=== PATIENT | female | born 1945 | race Caucasian/White ===

== ENCOUNTER → 2017-03-18 16:38 | Outpatient (CLI) | payer MEDICARE, BC ==
[2015-07-14 13:08] VITALS: BMI 29.1
[~2017-03-18 16:38] MED LIST: CENTRUM COMPLE1 EACH PO; CHONDROITIN SULFATE PO; COD LIVER OIL; CYMBALTA60 MG PO; DEXILANT60 MG PO; FISH OIL 1,2001 CAP PO; GLUCOSAMINE & C1 CAP PO; GLUCOSAMINE HC500 MG PO; LUTEIN20 MG PO; RITALIN20 MG PO; SYNTHROID75 MCG PO; VITAMIN D3 PO; VITAMIN D3400 UNI1 PO; VITAMIN E100 UNIT PO
== END | disposition home or self-care (01) ==
LOC: D.MAMMO 08:00
DX: Z12.31 Encounter for screening mammogram for malignant neoplasm of breast (principal)

== ENCOUNTER → 2018-08-22 19:20 | Outpatient (CLI) | payer MEDICARE, BC ==
[2015-07-14 13:08] VITALS: BMI 29.1
== END | disposition home or self-care (01) ==
LOC: D.MAMMO 09:30
DX: Z12.31 Encounter for screening mammogram for malignant neoplasm of breast (principal)

== ENCOUNTER 2018-10-03 10:35 | Outpatient (CLI) | payer MEDICARE, BC ==
[2015-07-14 13:08] VITALS: BMI 29.1
== END 2018-10-03 13:15 | disposition home or self-care (01) ==
LOC: D.OPS 10:35
PROVIDERS: ATTEND Internal Medicine Gastroenterology
DX: R13.10 Dysphagia, unspecified (principal); K22.70 Barrett's esophagus without dysplasia; R07.9 Chest pain, unspecified

== ENCOUNTER 2018-11-06 06:00 | Inpatient (IN) | payer MEDICARE, BC ==
[2018-11-03 09:37] LABS: HEMATOCRIT 39.8 % (36.0-48.0); HEMOGLOBIN 13.3 g/dL (12-16); MCH 27.8 pg (26.0-34.0); MCHC 33.4 g/dL (31.0-37.0); MCV 83.1 fL (80.0-100.0); MEAN PLATELET VOLUME 9.2 fL (7.4-10.4); RBC 4.79 10x6/uL (4.00-5.40); RDW 13.8 % (11.5-14.5); WBC 4.9 10x3/uL (4.8-10.8)
[~2018-11-06] VITALS: Ht 167.6 cm; Wt 84.5 kg
[2018-11-06] VITALS (12 sets, daily range): BP systolic 102–137; BP diastolic 52–74; Ht 167.6 cm; Wt 84.5 kg
[~2018-11-06 06:00] MED LIST changes: +CALCIUM 600 +1 EAC3 PO; +CARAFATE1 G PO; +CENTRUM SILVER1 EAC3 PO; +LEXAPRO10 MG PO; +OMEPRAZOLE40 MG PO; +ROBAXIN500 MG PO; +ULTRAM50 MG PO; +VITAMIN B-12500 MCG PO; +ZYRTEC10 MG PO
--- NOTE | 2018-11-06 11:25 | NUR ---
RECEIVED TO ROOM 2209 VIA BED FROM PACU. AT BEDSIDE. ALERT AND ORIENTEDX3. DENIES NEEDS. 4 SMALL INSERTION SITES NOTED TO ABDOMEN WHICH ARE CLEAN AND DRY. DENIES NEEDS. VSS.
--- NOTE | 2018-11-06 13:00 | NUR ---
LUNCH SERVED IN ROOM. ATE ONLY A FEW BITES. STATED IT WAS TO SALTY. DENIES NEEDS. VSS.
--- NOTE | 2018-11-06 16:15 | NUR ---
C/O CHEST PAIN. VSS. BP STEADY. HEART RATE IS UP SLIGHTLY. UP OUT OF BED WITH MIN ASSIST OF TWO. AMBULATED IN HALLWAY 50 FEET IWTH MIN ASSIST. REPORTS CHEST PAIN GONE AFTER AMBULATION. SITTING UP IN CHIAR AT BEDSIDE. DENIES NEEDS. ENCOURAGED TO TRY SOME JELLO AND WATER.
--- NOTE | 2018-11-06 18:51 | NUR ---
ATE ABOUT 25% OF SUPPER. C/O HEADACHE. GIVEN 650 MG TYLENOL LIQUID PO WILL MONITOR. AMBULATED IN HALLWAY 100 FEET WITH ONE PERSON MIN ASSIST.
--- NOTE | 2018-11-06 20:00 | NUR ---
ALERT RESTING IN BED, DENIES PAIN, SEE SHIFT ASSESSMENT CALL LIGHT IN RECH
[2018-11-07 00:26] VITALS: BP 124/64
[2018-11-07 04:38] VITALS: BP 117/60
[2018-11-07 06:09] LABS: BASOPHILS 0 % (0-2); EOSINOPHILS 0 % (0-7); HEMATOCRIT 35.6 % (36.0-48.0); HEMOGLOBIN 11.7 g/dL (12-16); IMMATURE GRANULOCYTES 0.2 % (0-5); LYMPHOCYTES 12.9 % (15-50); MCH 27.1 pg (26.0-34.0); MCHC 32.9 g/dL (31.0-37.0); MCV 82.6 fL (80.0-100.0); MEAN PLATELET VOLUME 9.5 fL (7.4-10.4); MONOCYTES 6.1 % (2-11); NEUTROPHILS 80.8 % (40-80); PLATELET COUNT 239 10x3/uL (130-400); RBC 4.31 10x6/uL (4.00-5.40); RDW 13.8 % (11.5-14.5); WBC 11.5 10x3/uL (4.8-10.8)
[2018-11-07 07:48] LABS: ALBUMIN 3.1 g/dL (3.4-5.0); ALKALINE PHOSPHATASE 46 U/L (46-116); ALT (SGPT) 92 U/L (10-68); BILIRUBIN - TOTAL 0.32 mg/dL (0.2-1.3); CALC OSMOLALITY 278 mosm/kg (275-300); CALCIUM 8.6 mg/dL (8.5-10.1); CHLORIDE - SERUM 102 mmol/L (98-107); CREATININE - SERUM 0.7 mg/dL (0.6-1.3); GLUCOSE 117 mg/dL (74-106); POTASSIUM - SERUM 3.8 mmol/L (3.5-5.1); PROTEIN - SERUM 6.5 g/dL (6.4-8.2); SODIUM 139 mmol/L (136-145); UREA NITROGEN 12 mg/dL (7-18); eGFR NON AFRICAN AMERICAN 87 mL/min (90-120)
--- NOTE | 2018-11-07 07:50 | NUR ---
PT SITTING UP IN CHAIR AT BEDSIDE. RESP EVEN AND UNLABORED. REPORTS HEADACHE THIS AM, REPORTING PAIN 10/10 AT THIS TIME. TRAMADOL ADMINISTERED PER MD ORDERS. IV TO RIGHT HAND WITH LR @ 75ML/HR INFUSING VIA PUMP. SITE WITHOUT REDNESS OR EDEMA. DENIES FURTHER NEEDS AT THIS TIME. CL WITHIN REACH. ENCOURAGED TO CALL WITH NEEDS. CONTINUE POC
[2018-11-07 08:29] VITALS: BP 107/44
[2018-11-07] MEDS ORDERED: HYDROCODON-ACE1 EAC7 PO (10:12)
--- NOTE | 2018-11-07 11:40 | NUR ---
PT DISCHARGE INSTRUCTIONS PROVIDED. DISCUSSED FOLLOW UP APPOINTMENT WITH DR OTOOLE. CONTINUATION OF HOME MEDICATIONS. IV D/C'D FROM RIGHT HAND, CATH INTACT. PT AWAITING RIDE HOME. DENIES FURTHER QUESTIONS AT THIS TIME.
== END 2018-11-07 13:39 | disposition home or self-care (01) | DRG 328 ==
LOC: D.OPS 06:00 → D.PAN 08:00 → D.OPS 08:00 → D.PAN 08:15 → D.MS 10:56 → D.OPS 10:57 → D.MS 10:58
PROVIDERS: Anesthesiology; ADMIT Surgery; ATTEND Surgery
PROC: 0BUT4JZ Supplement Diaphragm with Synthetic Substitute, Percutaneous Endoscopic Approach (ICD-10-PCS; principal; 2018-11-06 08:15)
PROC: 0DV44CZ Restriction of Esophagogastric Junction with Extraluminal Device, Percutaneous Endoscopic Approach (ICD-10-PCS; 2018-11-06 08:15)
DX: K21.0 Gastro-esophageal reflux disease with esophagitis (principal); K44.9 Diaphragmatic hernia without obstruction or gangrene

== ENCOUNTER → 2019-12-12 16:30 | Outpatient (CLI) | payer MEDICARE, BC ==
[~2019-12-12 16:30] MED LIST changes: +HYDROCODON-ACE1 EAC7 PO
== END | disposition home or self-care (01) ==
LOC: D.LABREF 16:30
PROVIDERS: ATTEND Orthopaedic Surgery
DX: M17.12 Unilateral primary osteoarthritis, left knee (principal)

== ENCOUNTER 2019-12-14 15:56 | Inpatient (IN) | payer MEDICARE, BC ==
[~2019-12-14] VITALS: Ht 167.6 cm; Wt 78.5 kg
[2019-12-25] MEDS ORDERED: CALCIUM PO (13:28)
[2019-12-25] MEDS ORDERED: VITAMIN D5000 UNI1 PO (13:29)
[2019-12-25] MEDS ORDERED: TRINTELLIX20 MG PO (13:30)
[2019-12-25] MEDS ORDERED: [UNRECOGNIZED DRUG - OTHER] PO (13:37)
[2019-12-25] MEDS ORDERED: VITAMIN B-1100 M1 PO (13:38)
[2019-12-26 12:08] LABS: ANION GAP 7.2 mmol/L (8-16); CALCIUM 9.4 mg/dL (8.5-10.1); CARBON DIOXIDE 31.7 mmol/L (21.0-32.0); CREATININE - SERUM 0.8 mg/dL (0.6-1.3); POTASSIUM - SERUM 3.9 mmol/L (3.5-5.1)
[2019-12-26 12:10] LABS: BASOPHILS 0.2 % (0-2); EOSINOPHILS 2.8 % (0-7); HEMATOCRIT 43.2 % (36.0-48.0); HEMOGLOBIN 13.7 g/dL (12-16); LYMPHOCYTES 41.2 % (15-50); MCH 27.5 pg (26.0-34.0); MCHC 31.7 g/dL (31.0-37.0); MCV 86.7 fL (80.0-100.0); MEAN PLATELET VOLUME 9.2 fL (7.4-10.4); MONOCYTES 8.8 % (2-11); PLATELET COUNT 244 10x3/uL (130-400); RBC 4.98 10x6/uL (4.00-5.40); RDW 13.4 % (11.5-14.5); WBC 5.7 10x3/uL (4.8-10.8)
[2019-12-26 12:14] LABS: APTT 23.9 SECONDS (22.8-39.4); INR 0.91 (0.85-1.17); PROTIME 12.2 SECONDS (11.6-15.0)
[2019-12-26 13:31] LABS: BILIRUBIN NEGATIVE (NEGATIVE); GLUCOSE NEGATIVE (NEGATIVE); KETONE NEGATIVE (NEGATIVE); NITRITE NEGATIVE (NEGATIVE); SPECIFIC GRAVITY 1.015 (1.005-1.020); UROBILINOGEN NORMAL (NORMAL)
[2020-01-01] VITALS (13 sets, daily range): BP systolic 98–125; BP diastolic 39–62; BMI 27.5; BMI 27.9
--- NOTE | 2020-01-01 12:47 | NUR ---
THROUGH TRAFFIC KEPT TO A MINIMUM. HIBACLENS AND ALCOHOL USED TO WASH LEG BEFORE PREPPING. STERILE GOWNED AND GLOVED TO CHLORAPREP ENTIRE LEG.
--- NOTE | 2020-01-01 14:15 | NUR ---
XRAY COMPLETED AND ICE APPLIED ORDERED. PT AWAKE AND RESTING QUIETLY IN PACU. VSS. WILL CALL REPORT TO FLOOR NURSE AND CPOC.
--- NOTE | 2020-01-01 14:45 | NUR ---
RECEIVED FROM SURGERY. LEFT TOTAL KNEE DONE. DRESSING TO KNEE CDI. NO COMPLAINTS OF PAIN OR DISCOMFORT. VITAL SIGNS STABLE. DENIES HAVING ANY NEEDS AT THIS TIME. CONTINUE PLAN OF CARE.
--- NOTE | 2020-01-01 18:58 | NUR ---
PATIENT C/O PAIN. ADMINISTERED PAIN MEDS PER ORDERS.
--- NOTE | 2020-01-01 19:25 | NUR ---
PLACED PATIENT ON CPM TO LEFT KNEE. PATIENT DENIES OTHER NEEDS AT THIS TIME. VSS. COMPLETED ASSESSMENT. PATIENT DENIES OTHER NEEDS AT THIS TIME. BED IN LOWEST POSITION AND CALL LIGHT WITHIN REACH. ENCOURAGED THE PATIENT TO CALL IF SHE HAS NEEDS. WILL CONTINUE TO MONITOR.
[2020-01-02] VITALS: BP 101/49
--- NOTE | 2020-01-02 02:02 | NUR ---
PT CUSTOMER ACCOUNT MANAGER LIGHT, PT PLACED ON BEDPAN, VOIDED BY SELF WITH NO DIFFICULTY, PT REMOVED FROM BEDPAN, ANA MARIA CARE DONE WITH WET WIPES, PT C/O LEFT LEG PAIN, ADM PAIN MED PER MD ORDERS, SEE EMAR, WITH FRESH H20, PT DENIES FURTHER NEEDS, SCD AND PLEXI PULSE ON AND WORKING PROPERLY, BED IN LOW POSITION, SIDE RAILS X 2, CALL LIGHT IN REACH
[2020-01-02 04:10] VITALS: BP 95/47
--- NOTE | 2020-01-02 04:10 | NUR ---
PT CLINICAL EVALUATOR LIGHT, VS OBTAINED, PT PLACED ON BEDPAN, VOIDED BY SELF WITH NO DIFFICULTY, PT REMOVED FROM BEDPAN, ANA MARIA CARE DONE WITH WET WIPES, PT REQUESTED AND SERVED FRESH H20, DENIES FURTHER NEEDS
--- NOTE | 2020-01-02 05:56 | NUR ---
PT RESTING WITH EYES CLOSED, AROUSES TO SOFT VERBAL STIMULATION, PT PLACED ON BEDPAN, VOIDED WITH NO DIFFICULTY, REMOVED FROM BEDPAN, ANA MARIA CARE DONE WITH WET WARM WIPE, ADM PAIN MED AND SYNTHROID PER MD ORDERS, SEE EMAR, PT PLACED ON CPM MACHINE, PT DENIES FURTHER NEEDS
[2020-01-02 07:04] LABS: HEMATOCRIT 34.4 % (36.0-48.0); MCH 27.4 pg (26.0-34.0); MCV 85.6 fL (80.0-100.0); MEAN PLATELET VOLUME 9.5 fL (7.4-10.4); RBC 4.02 10x6/uL (4.00-5.40); RDW 13.3 % (11.5-14.5)
[2020-01-02 11:14] VITALS: Ht 167.6 cm; Wt 78.5 kg
[2020-01-02 11:54] VITALS: BP 103/50
[2020-01-02 13:35] VITALS: BP 95/47
--- NOTE | 2020-01-02 14:47 | NUR ---
PT C/O 12/25 LFT KNEE PAIN, STATES LEG TINGLES, PT SUPRISED TO KNOW NO PAIN MEDS SINCE 050
[2020-01-02 15:43] LABS: CALCIUM 8.3 mg/dL (8.5-10.1); CARBON DIOXIDE 31.2 mmol/L (21.0-32.0); CREATININE - SERUM 0.9 mg/dL (0.6-1.3); MAGNESIUM - SERUM 2.1 mg/dL (1.8-2.4); POTASSIUM - SERUM 4.2 mmol/L (3.5-5.1)
[2020-01-02 16:41] LABS: BASOPHILS 0.1 % (0-2); EOSINOPHILS 0.5 % (0-7); HEMOGLOBIN 10.9 g/dL (12-16); IMMATURE GRANULOCYTES 0.1 % (0-5); LYMPHOCYTES 25.1 % (15-50); MCH 27.3 pg (26.0-34.0); MCHC 32.1 g/dL (31.0-37.0); MCV 85.2 fL (80.0-100.0); MEAN PLATELET VOLUME 9.2 fL (7.4-10.4); MONOCYTES 9.3 % (2-11); NEUTROPHILS 64.9 % (40-80); PLATELET COUNT 181 10x3/uL (130-400); RBC 3.99 10x6/uL (4.00-5.40); RDW 13.3 % (11.5-14.5); WBC 9.7 10x3/uL (4.8-10.8)
--- NOTE | 2020-01-02 17:29 | OP ---
PATIENT NAME: MEKA CHAVEZ MEDICAL RECORD: [id number] :49 LOCATION:D. D.1205 ADMISSION DATE:01/01/20 SURGEON: REJI ARELLANO DO DATE OF OPERATION: 01/01/2020 PROCEDURE PERFORMED: Left total knee arthroplasty. PREOPERATIVE DIAGNOSIS: Left knee osteoarthritis with severe valgus deformity. POSTOPERATIVE DIAGNOSIS: Left knee osteoarthritis with severe valgus deformity. INDICATIONS: Ms. Chavez is a 74-year-old female who has had all manner of nonoperative treatment for this left knee is painful. She has tried bracing as well to no avail. She want something done surgically and wanted a total knee done as this is affecting her activities of daily living. I informed her of the risks including infection, bleeding, damage to nerves and vessels, need for further surgery, continued pain, arthrofibrosis, blood clots, , failure of implants and she signed the consent. SURGEON: Reji Arellano DO SYSTEMS PROTECTION TECHNICIAN: I was assisted by Wilfred Flynn, certified surgical middle school assistant principal. DESCRIPTION OF PROCEDURE: The patient was taken to the operative suite, laid in supine position, given general anesthetic and LMA placed. She was given 2 grams Ancef, 80 mg of gentamicin, a gram of TXA. After the LMA was placed, the left lower extremity was prepped and draped in sterile fashion. A timeout was performed and everyone was in agreement with correct side, site, patient and procedure and then began to carmelo out the incision and covered in Ioban. I used a 10-blade scalpel to go through the skin down to the capsule. A fresh 10 blade was then used to make a medial parapatellar approach through the knee and once that was completed, any bleeding was coagulated with Aquamantys. Part of the fat pad was removed. The patella was everted and milled down to accommodate a prosthesis. The knee was then flexed up and the femoral canal was entered. The distal femur was then cut through the intramedullary guide after pinning it into place. Then, the proximal tibia was cut as well using extramedullary guide. The excess tibia was then removed as well as the menisci and a 10 extension block and block fit well. We then flexed the knee up and sized the femur to be 62.5. A 4-in-1 cutting block was then impacted on and pinned into place. The alex wing was used to ensure there was no notching. We then cut through the 4-in-1 cutting block where the femur was. The excess bone was removed and then the trial was impacted on. I then floated in the tibial tray with the poly and marked the rotation. After ranging the knee 3 times, it did fit very well and good medial and lateral stability. The head was then marked and then the patella was drilled as well as the lug holes in the femur. The trial was then removed. The tibia was then exposed and sized to be 67. This was then reamed and punched and the extra holes put in the tibia. Cement was then mixed and the tibia was irrigated as well as the femur. Cement was then put in the bone and all the implant impacted and placed on the tibia. Excess cement was removed. I then impacted the femur on and put a 10 poly in between them, brought the knee into extension and exposed the patella. The patella was then cleaned out and cement was put in the patellar holes and this was squeezed and held into place while the cement dried. Excess cement was removed from it. We then put in the 10% povidone iodine with 500 mL normal saline wash and let it sit for 3 minutes, irrigated that out with a liter of normal saline. Then, the cement was then OPERATIVE REPORT [id number] MEKA CHAVEZ dried and then sized the poly to a 12, 12 fit very well, put in the anterior stabilizer 12 poly and locked into place and had good range of motion of the knee and good stability medially and laterally in flexion and extension. I then irrigated one more time, put in Rosibel powder and vancomycin powder. Wilfred Flynn, certified energy manager, closed the capsule with #1 pops Vicryl in [id number]-no-axzjs fashion. He then closed the skin with 2-0 Vicryl in inverted interrupted fashion and a ZipLine placed on the knee. She was then dressed with Adaptic, 4 x 4s, ABD, Webril, Ryan wrap and then taken to recovery in stable condition. Blood loss approximately 250 mL. COMPLICATIONS: None. TRANSINT:[id number] Voice Confirmation ID: [id number] DOCUMENT ID: [id number] REJI ARELLANO DO at 7089 CC: [id number] DICTATION DATE: 01/01/20 1334 MIXER OPERATOR HOT METAL: 01/02/20 0024 ADM IN [facility] [address] [id number]
--- NOTE | 2020-01-02 19:08 | MORECARE ---
CASE MANAGEMENT DISCHARGE SUMMARY PATIENT: MEKA CHAVEZ UNIT: [id number] ADM DATE: 01/01/20 AGE: 74 : [birth year] SEX: F ROOM/BED: D.1205 AUTHOR: TALHA,DOC PHYSICIAN: REFERRING PHYSICIAN: EMILY ARELLANO DO DATE OF SERVICE: 01/02/20 Discharge Plan Patient Name: MEKA CHAVEZ Facility: [facility]:[place] : 1945 Planned Disposition: Outpatient PT\OT Anticipated Discharge Date: 01/04/20 Discharge Date: Expected LOS: 3 Initial Reviewer: [email or web address] Initial Review Date: 01/01/2020 Generated: 01/02/20 8:07 pm Comments DCP- Discharge Planning Updated by [id number]: Keira Her on 01/02/20 6:[address] CM Met with patient regarding DC plans/needs. Patient lives independently with her , Al. States she has 3 steps going into her home. PCP: Sangeetha Borden APRN. Pharmacy: [facility]. Emergency contact: Waylon Chavez (spouse) [phone]. CM discussed HHS, OP Therapy, Rehab, SNF for therapy. Patient choice signed for [facility] OP Therapy. Patient states she can return to her home, safely. Denies being hospitalized within the past 30 days. Transportation upon DC will be her , Waylon. CM will contact [facility] OP Therapy for initial date/time of initial appointment. CM will follow and graham OLLIE. DCPIA - Discharge Planning Initial Assessment Updated by [id number]: Keira Her on 01/02/20 7:06 pm * Is the patient Alert and Oriented? Yes * How many steps to enter\exit or inside your home? * PCP Sangeetha Borden APRN * Pharmacy [facility]. * Preadmission Environment Home with Family * ADLs Independent * Equipment Rolling Walker Shower Chair * Other Equipment 2 wheeled walker, Polar Ice pack, Tub bench, CPM * List name and contact numbers for known caregivers / representatives who currently or will assist patient after discharge: Waylon Chavez (spouse) [phone] * Verbal permission to speak to the caregivers and representatives has been obtained from the patient. Yes * Community resources currently utilized None * Please name any agencies selected above. [facility] OP Therapy [phone] * Additional services required to return to the preadmission environment? Yes * Can the patient safely return to the preadmission environment? Yes * Has this patient been hospitalized within the prior 30 days at any hospital? No Patient Name: MEKA CHAVEZ Page [id number] at 1908 All edits/amendments must be made on the electronic document DICTATION DATE: 01/02/201906 OYSTER SORTER: ROBER 01/02/201906 RPT#: [id number] DC DATE: STATUS: ADM IN [facility] [address] [place] [address] END OF REPORT
--- NOTE | 2020-01-02 19:31 | NUR ---
PM ROUNDS MADE, CPM MACHINE ON AND WORKING PROPERLY, INFORMED PT THAT I WILL BE BACK SHORTLY, PT VERBALIZES UNDERSTANDING, DENIES NEEDS AT THIS TIME
[2020-01-02 20:15] VITALS: BP 95/47
--- NOTE | 2020-01-02 20:15 | NUR ---
ASSESSMENT PER FLOW SHEET, VS OBTAINED, SALINE LOCK IN LEFT FA INTACT WITH NO REDNESS OR EDEMA, LEFT KNEE DRESSING CDI WITH NO DRAINAGE NOTED, PT ON CPM AT THIS TIME, PT REPORTS NEEDING TO VOID, PT UP TO BR VIA WALKER WITH ASSISTANCE, GAIT STEADY, VOIDED WITH NO DIFFICULTY, PT BACK TO BED, LEFT KNEE BACK IN CPM, KATERINA HOSE AND SCD PLACED ON RIGHT LEG, SCD MACHING WORKING PROPERLY, PT INST ON AND DEMONSTRATED I.S. WITH GOOD EFFORT, RATES INC PAIN 6/10, DENIES NEED FOR PAIN MED AT THIS TIME, PT DENIES NEEDS, BED IN LOW POSITION, SIDE RAILS X 2, CALL LIGHT IN REACH
--- NOTE | 2020-01-02 21:36 | NUR ---
PT CEMENT PAVER LIGHT, PT REQUEST CPM OFF AT THIS TIME, ADM 2100 MEDS AND PAIN MED PER MD ORDERS, SEE EMAR, PLEXI BOOT PLACED ON LEFT FOOT AND WORKING PROPERLY, PT DENIES FURTHER NEEDS, BED IN LOW POSITION, SIDE RAILS X 2, CALL LIGHT IN REACH, TRASH REMOVED
--- NOTE | 2020-01-02 22:30 | NUR ---
PT RESTING WITH EYES CLOSED, RESP QUIET, NO DISTRESS NOTED, LEFT UNDISTURBED AT THIS TIME
--- NOTE | 2020-01-03 00:38 | NUR ---
PT RESTING WITH EYES CLOSED, RESP QUIET, NO DISTRESS NOTED, LEFT UNDISTURBED AT THIS TIME
--- NOTE | 2020-01-03 02:10 | NUR ---
PT RESTING WITH EYES CLOSED, AROUSES TO SOFT VERBAL STIMULATION, PT DENIES NEED FOR PAIN MED AT THIS TIME, BED IN LOW POSITION, SIDE RAILS X 2, CALL LIGHT IN REACH
[2020-01-03 03:47] VITALS: BP 105/54
--- NOTE | 2020-01-03 03:47 | NUR ---
PT C APPLICATION DEVELOPER LIGHT, PT UP TO BR VIA WALKER WITH ASSISTANCE, VOIDED, REPORTS FEELING A LITTLE NAUSEATED, PT BACK TO BED, PT REQUESTED O2 AT THIS TIME, STATES "WHEN I WAS IN THE AMBULANCE WHEN I BROKE MY WRIST, I TOLD THE EMT THAT I FELT LIKE I WAS GOING TO THROW UP, AND HE TOLD ME TO TAKE IN DEEP BREATHS OF THE OXYGEN AND THAT I WOULD FEEL BETTER, AND IT ACTUALLY WORKED", SCD AND PLEXI PULSE PLACED ONE AND WORKING PROPERLY, ADM PAIN MED PER MD ORDERS, SEE EMAR, INFORMED PT THAT I WILL IN AROUND 5AM TO PLACE CPM ON, PT VERBALIZES UNDERSTANDING, FRESH H20 SERVED, DENIES FURTHER NEEDS
--- NOTE | 2020-01-03 05:30 | NUR ---
PT AROUSES TO SOFT VERBAL STIMULATION, CPM PLACED ON AND WORKING PROPERLY, PT DENIES NEEDS OR PAIN AT THIS TIME
[2020-01-03 06:34] LABS: CALC OSMOLALITY 278 mosm/kg (275-300); CALCIUM 7.7 mg/dL (8.5-10.1); CHLORIDE - SERUM 105 mmol/L (98-107); GLUCOSE 105 mg/dL (74-106); SODIUM 140 mmol/L (136-145); UREA NITROGEN 12 mg/dL (7-18)
[2020-01-03 06:35] LABS: CREATININE - SERUM 0.6 mg/dL (0.6-1.3); POTASSIUM - SERUM 3.4 mmol/L (3.5-5.1); eGFR NON AFRICAN AMERICAN > 90 mL/min (90-120)
--- NOTE | 2020-01-03 06:47 | NUR ---
PT RESTING WITH EYES CLOSED, AROUSES TO SOFT VERBAL STIMULATION, ADM 0600 MEDS PER MD ORDERS, SEE EMAR, PT DENIES NEEDS AT THIS TIME
[2020-01-03] MEDS ORDERED: ELIQUIS2.5 MG PO (07:29)
[2020-01-03] MEDS ORDERED: HYDROCODON-ACE1 EA10 PO (07:30)
[2020-01-03] MEDS ORDERED: KEFLEX500 MG PO (07:30)
[2020-01-03 07:31] LABS: BASOPHILS 0.1 % (0-2); EOSINOPHILS 2.9 % (0-7); HEMATOCRIT 32.5 % (36.0-48.0); HEMOGLOBIN 10.7 g/dL (12-16); IMMATURE GRANULOCYTES 0.1 % (0-5); LYMPHOCYTES 28.8 % (15-50); MCHC 32.9 g/dL (31.0-37.0); MCV 85.1 fL (80.0-100.0); MEAN PLATELET VOLUME 9.9 fL (7.4-10.4); MONOCYTES 10.4 % (2-11); NEUTROPHILS 57.7 % (40-80); PLATELET COUNT 205 10x3/uL (130-400); RBC 3.82 10x6/uL (4.00-5.40); RDW 13.7 % (11.5-14.5); WBC 7.8 10x3/uL (4.8-10.8)
[2020-01-03 07:40] VITALS: BP 116/48
--- NOTE | 2020-01-03 07:40 | NUR ---
PT IS RESTING IN BED WITH EYES OPEN. RESPIRATIONS ARE EVEN AND UNLABORED. PT IS AAOX 4. DRESSING TO LEFT KNEE NOTED AND CDI. CPM IS ON AND WORKING WITHOUT DIFFICULTY. PT DENIES PRESENCE OF NUMBNESS/TINGLING TO LLE. PT WITH O2 VIA NC @ 1.5L. PT REPORTS THAT THE O2 ASSISTS WITH NAUSEA AND DOES NOT WEAR O2 AT HOME. PIV TO LEFT FA NOTED AND IS SL. FLUSHES WITHOUT DIFFICULTY. PT DENIES PRESENCE OF PAIN/VOMITING AT THIS TIME. PT REPORTS NAUSEA AND DENIES NEEDS AND STATES "THE OXYGEN IS HELPING". BED IS IN THE LOWEST POSITION. CALL LIGHT AND BEDSIDE TABLE ARE WITHIN REACH. SIDE RAILS X 2. PT DENIES FURTHER NEEDS. WILL CONT TO MONITOR.
--- NOTE | 2020-01-03 08:15 | NUR ---
CPM REMOVED PER PT REQUEST.
--- NOTE | 2020-01-03 10:16 | MORECARE ---
CASE MANAGEMENT DISCHARGE SUMMARY PATIENT: MEKA CHAVEZ UNIT: [id number] ADM DATE: 01/01/20 AGE: 74 : 47 SEX: F ROOM/BED: D.1205 AUTHOR: TALHA,DOC PHYSICIAN: REFERRING PHYSICIAN: EMILY ARELLANO DO DATE OF SERVICE: 01/03/20 Discharge Plan Patient Name: MEKA CHAVEZ Facility: [facility]:[place] : 1945 Planned Disposition: Outpatient PT\OT Anticipated Discharge Date: 01/04/20 Discharge Date: Expected LOS: 3 Initial Reviewer: [email or web address] Initial Review Date: 01/01/2020 Generated: 01/03/20 11:15 am Comments DCP- Discharge Planning Updated by [id number]: Keira Her on 01/03/20 9:[address] [facility] OP PT appointment 01/02 @2:45 pm. Arrive by 2:30 for paperwork. DCP- Discharge Planning Updated by [email or web address]: Keira Her on 01/02/20 6:[address] CM Met with patient regarding DC plans/needs. Patient lives independently with her , Waylon. States she has 3 steps going into her home. PCP: Sangeetha Borden APRN. Pharmacy: [facility]. Emergency contact: Waylon Chavez (spouse) [phone]. CM discussed HHS, OP Therapy, Rehab, SNF for therapy. Patient choice signed for [facility] OP Therapy. Patient states she can return to her home, safely. Denies being hospitalized within the past 30 days. Transportation upon DC will be her , Waylon. CM will contact [facility] OP Therapy for initial date/time of initial appointment. CM will follow and graham LEVIN. DCPIA - Discharge Planning Initial Assessment Updated by [id number]: Keira Her on 01/02/20 7:06 pm * Is the patient Alert and Oriented? Yes * How many steps to enter\exit or inside your home? * PCP Sangeetha Borden APRN * Pharmacy [facility]. * Preadmission Environment Home with Family * ADLs Independent * Equipment Rolling Walker Shower Chair * Other Equipment 2 wheeled walker, Polar Ice pack, Tub bench, CPM * List name and contact numbers for known caregivers / representatives who currently or will assist patient after discharge: Waylon Chavez (spouse) [phone] * Verbal permission to speak to the caregivers and representatives has been obtained from the patient. Yes * Community resources currently utilized None * Please name any agencies selected above. [facility] OP Therapy [phone] * Additional services required to return to the preadmission environment? Yes * Can the patient safely return to the preadmission environment? Yes * Has this patient been hospitalized within the prior 30 days at any hospital? No Last DP export: 01/02/20 6:08 p Patient Name: MEKA CHAVEZ Page [phone] at 1016 All edits/amendments must be made on the electronic document DICTATION DATE: 01/03/20 1015 VEST MAKER: ROBER 01/03/20 1015 RPT#: [id number] DC DATE: STATUS: ADM IN [facility] [address] [place] [address] END OF REPORT
[2020-01-03 11:25] VITALS: BP 115/41
--- NOTE | 2020-01-03 12:00 | NUR ---
ALL DISCHARGE INSTRUCTIONS COVERED WITH PT AND PT SPOUSE. (4) PRINTED RX GIVEN TO PT. PT DENIES FURTHER QUESTIONS/CONCERNS/NEEDS. PIV TO LEFT FA REMOVED WITH CATHETER TIP INTACT. DRESSING APPLIED. DRESSING CHANGED TO LEFT KNEE PER ORDER. 94) EXTRA DRESSING GIVEN TO PT FOR PT HOME NEEDS. ALL DISCHARGE PAPERS SIGNED. PT TO NOTIFY NURSE WHEN READY FOR TRANSPORT FROM ROOM.
--- NOTE | 2020-01-03 12:15 | NUR ---
PT TRANSPORTED FROM ROOM VIA WHEELCHAIR. PT STATES THAT SHE HAS ALL PERSONAL BELONGINGS. PT DENIES FURTHER QUESTIONS/CONCERNS/NEEDS AT THIS TIME. PT THANKS THIS NURSE FOR CARE GIVEN DURING THIS SHIFT.
--- NOTE | 2020-01-04 09:15 | MORECARE ---
CASE MANAGEMENT DISCHARGE SUMMARY PATIENT: MEKA CHAVEZ UNIT: [id number] ADM DATE: 01/01/20 AGE: 74 : 47 SEX: F ROOM/BED: D.1205 AUTHOR: TALHA,DOC PHYSICIAN: REFERRING PHYSICIAN: EMILY ARELLANO DO DATE OF SERVICE: 01/04/20 Discharge Plan Patient Name: MEKA CHAVEZ Facility: [facility]:[place] : 1945 Planned Disposition: Outpatient PT\OT Anticipated Discharge Date: 01/04/20 Discharge Date: 01/03/2020 Expected LOS: 3 Initial Reviewer: [email or web address] Initial Review Date: 01/01/2020 Generated: 01/04/20 10:15 am Comments DCP- Discharge Planning Updated by [email or web address]: Keira Her on 01/03/20 9:[address] [facility] OP PT appointment 01/02 @2:45 pm. Arrive by 2:30 for paperwork. DCP- Discharge Planning Updated by [email or web address]: Keira Her on 01/02/20 6:[address] CM Met with patient regarding DC plans/needs. Patient lives independently with her , Al. States she has 3 steps going into her home. PCP: Sangeetha Borden APRN. Pharmacy: [facility]. Emergency contact: Waylon Chavez (spouse) [phone]. CM discussed HHS, OP Therapy, Rehab, SNF for therapy. Patient choice signed for [facility] OP Therapy. Patient states she can return to her home, safely. Denies being hospitalized within the past 30 days. Transportation upon DC will be her , Waylon. CM will contact [facility] OP Therapy for initial date/time of initial appointment. CM will follow and graham LEVIN. DCPIA - Discharge Planning Initial Assessment Updated by [id number]: Keira Her on 01/02/20 7:06 pm * Is the patient Alert and Oriented? Yes * How many steps to enter\exit or inside your home? * PCP Sangeetha Borden APRN * Pharmacy [facility]. * Preadmission Environment Home with Family * ADLs Independent * Equipment Rolling Walker Shower Chair * Other Equipment 2 wheeled walker, Polar Ice pack, Tub bench, CPM * List name and contact numbers for known caregivers / representatives who currently or will assist patient after discharge: Waylon Chavez (spouse) [phone] * Verbal permission to speak to the caregivers and representatives has been obtained from the patient. Yes * Community resources currently utilized None * Please name any agencies selected above. [facility] OP Therapy [phone] * Additional services required to return to the preadmission environment? Yes * Can the patient safely return to the preadmission environment? Yes * Has this patient been hospitalized within the prior 30 days at any hospital? No Coverage Notice Reviewer: [email or web address] Tonio Her Notice Issued Date-Time: 01/03/2020 13:04 Notice Type: Patient Choice Letter Notice Delivered To: Patient Relationship to Patient: Self Tile Machine Operator Name: Meka Chavez Delivery Method: HAND - Hand Delivered Asya Days: Prior Verbal Notification: Recipient Understood Notice: Yes Recipient Signature: Yes Med Rec Note Co-signed by Attending: Coverage Notice Comment: Patient choice for [facility] OP Therapy signed/given to patient. Original to chart. Last DP export: 01/03/20 9:16 a Patient Name: MEKA CHAVEZ Page [phone] at 0915 All edits/amendments must be made on the electronic document DICTATION DATE: 01/04/20914 FAMILY MANAGER: ROBER 01/04/20914 RPT#: [id number] DC DATE:01/03/20 STATUS: DIS IN [facility] [address] [place] [address] END OF REPORT
== END 2020-01-03 13:17 | disposition home or self-care (01) | DRG 470 ==
LOC: D.SDCHOLD 01-01 10:00 → D.M3 01-01 10:05 → D.SDCHOLD 01-01 12:00 → D.M3 01-01 14:07
PROVIDERS: Family Medicine; ADMIT Orthopaedic Surgery; ATTEND Orthopaedic Surgery
PROC: 0SRD0J9 Replacement of Left Knee Joint with Synthetic Substitute, Cemented, Open Approach (ICD-10-PCS; principal; 2020-01-01 12:30)
DX: M17.12 Unilateral primary osteoarthritis, left knee (principal); M21.062 Valgus deformity, not elsewhere classified, left knee; K21.9 Gastro-esophageal reflux disease without esophagitis; D64.9 Anemia, unspecified; G25.81 Restless legs syndrome; F32.9 Major depressive disorder, single episode, unspecified; E03.9 Hypothyroidism, unspecified; F98.8 Other specified behavioral and emotional disorders with onset usually occurring in childhood and adolescence

== ENCOUNTER → 2020-02-11 19:54 | Outpatient (CLI) | payer MEDICARE, BC ==
[2020-01-02 11:14] VITALS: BMI 27.9
[~2020-02-11 19:54] MED LIST changes: +CALCIUM PO; +ELIQUIS2.5 MG PO; +HYDROCODON-ACE1 EA10 PO; +KEFLEX500 MG PO; +TRINTELLIX20 MG PO; +VITAMIN B-1100 M1 PO; +VITAMIN D5000 UNI1 PO; +[UNRECOGNIZED DRUG - OTHER] PO
[2020-02-11 21:48] LABS: BASOPHILS 0.1 % (0-2); EOSINOPHILS 3.4 % (0-7); HEMATOCRIT 42.3 % (36.0-48.0); IMMATURE GRANULOCYTES 0.3 % (0-5); LYMPHOCYTES 38.2 % (15-50); MCH 27.3 pg (26.0-34.0); MCHC 30.7 g/dL (31.0-37.0); MCV 88.7 fL (80.0-100.0); MEAN PLATELET VOLUME 9.4 fL (7.4-10.4); RBC 4.77 10x6/uL (4.00-5.40); RDW 14.3 % (11.5-14.5); WBC 6.8 10x3/uL (4.8-10.8)
[2020-02-11 22:59] LABS: PLATELET COUNT 286 10x3/uL (130-400)
[2020-02-11 23:00] LABS: ERYTHROCYTE SEDIMENTATION RATE 4 mm/hr (0-30)
== END | disposition home or self-care (01) ==
LOC: D.LABREF 19:54
PROVIDERS: ATTEND Clinical Nurse Specialist Family Health
DX: M25.562 Pain in left knee (principal)

== ENCOUNTER 2020-09-24 15:25 | Outpatient (CLI) | payer MEDICARE, BC ==
[2020-01-02 11:14] VITALS: BMI 27.9
== END 2020-09-24 23:59 | disposition home or self-care (01) ==
LOC: D.MAMMO 15:25
PROVIDERS: ATTEND Family Medicine
DX: R92.8 Other abnormal and inconclusive findings on diagnostic imaging of breast (principal)

== ENCOUNTER 2020-10-10 08:00 | Outpatient (CLI) | payer MEDICARE, BC ==
[2020-01-02 11:14] VITALS: BMI 27.9
== END 2020-10-10 08:30 | disposition home or self-care (01) ==
LOC: D.MAMMO 08:00
PROVIDERS: ATTEND Family Medicine
DX: R92.8 Other abnormal and inconclusive findings on diagnostic imaging of breast (principal)

== ENCOUNTER → 2020-10-20 18:10 | Outpatient (CLI) | payer MEDICARE, BC | END | disposition home or self-care (01) | LOC: D.LABREF 18:10 | DX: M17.11 Unilateral primary osteoarthritis, right knee (principal) ==

== ENCOUNTER 2020-10-22 12:05 | Inpatient (IN) | payer MEDICARE, BC ==
[~2020-10-22] VITALS: Ht 167.6 cm; Wt 77.3 kg
[2020-11-14] MEDS ORDERED: ULTRAM50 MG PO (08:46)
[2020-11-14] MEDS ORDERED: WELLBUTRIN SR150 MG PO (08:47)
[2020-11-14 09:29] LABS: BASOPHILS 0.2 % (0-2); EOSINOPHILS 2.2 % (0-7); HEMATOCRIT 42.1 % (36.0-48.0); LYMPHOCYTE ABS# 1.92 10x3/uL (1.18-3.74); LYMPHOCYTES 37.7 % (15-50); MCH 28.2 pg (26.0-34.0); MCHC 33.3 g/dL (31.0-37.0); MCV 84.7 fL (80.0-100.0); MEAN PLATELET VOLUME 9.4 fL (7.4-10.4); MONOCYTES 9.6 % (2-11); NEUTROPHIL ABS# 2.56 10x3/uL (1.56-6.13); NEUTROPHILS 50.3 % (40-80); PLATELET COUNT 247 10x3/uL (130-400); RBC 4.97 10x6/uL (4.00-5.40); WBC 5.1 10x3/uL (4.8-10.8)
[2020-11-14 09:32] LABS: BILIRUBIN NEGATIVE (NEGATIVE); KETONE NEGATIVE (NEGATIVE); NITRITE NEGATIVE (NEGATIVE); UROBILINOGEN NORMAL mg/dL (< 2)
[2020-11-14 09:33] LABS: BACTERIA FEW HPF (NONE SEEN); SQUAMOUS EPITHELIAL 0-5 HPF (0-4); WHITE CELLS - URINE 0-5 HPF (0-4)
[2020-11-14 09:37] LABS: CALC OSMOLALITY 277 mosm/kg (275-300); CALCIUM 9.6 mg/dL (8.5-10.1); CHLORIDE - SERUM 103 mmol/L (98-107); CREATININE - SERUM 0.7 mg/dL (0.6-1.3); GLUCOSE 100 mg/dL (74-106); SODIUM 140 mmol/L (136-145); UREA NITROGEN 9 mg/dL (7-18); eGFR NON AFRICAN AMERICAN 87 mL/min (90-120)
[2020-11-14 10:12] LABS: APTT 22.6 SECONDS (22.8-39.4); INR 0.99 (0.85-1.17); PROTIME 12.1 SECONDS (11.6-15.0)
[2020-11-19 07:03] VITALS: BP 113/57; BMI 27.5
[2020-11-19 11:58] VITALS: BP 122/66
[2020-11-19 12:11] VITALS: BP 122/66; Ht 167.6 cm; Wt 77.3 kg
[2020-11-19 15:35] VITALS: BP 122/70
--- NOTE | 2020-11-19 16:12 | NUR ---
PATIENT ASLEEP IN BED NO SIGNS OF DISTRESS, CL IN REACH, BED IN LOWEST POSITION. CONTINUE WITH PLAN OF CARE
--- NOTE | 2020-11-19 18:12 | NUR ---
ADMINISTERED PRN PAIN MEDICATION. PATIENT PLACED ON CPM MACHINE AT 610. PATIENT TO BE TAKEN OFF AT 9PM. NO OTHER NEEDS VOICED AT THIS TIME. CONTINUE WITH PLAN OF CARE
[2020-11-19 19:00] VITALS: BP 105/49
--- NOTE | 2020-11-19 19:00 | NUR ---
REPORT GIVEN BY MATT JAMES.
--- NOTE | 2020-11-19 20:15 | NUR ---
THIS PT HAD A RIGHT TKA TODAY. SHE IS CURRENTLY ON THE CPM MACHINE. SHE HAS AN IV IN THE LEFT FOREARM WITH LR. NEXT BAG WILL BE 1/2 NS AT 100ML/HR. PT HAS TEDS AND SCDS IN PLACE. PT USES HER IS AND PULLS CONSISTENTLY 1500 SHE WANTS TO CHEAT AND HAVE THE CPM TAKEN OFF. I TOLD HER SHE NEEDED TO KEEP IT ON FOR THE FULL 3 HOURS. PT STATES SHE FEELS LIKE SHE IS LEAKING URINE NOW WHILE SHE IN ON THE CPM.
--- NOTE | 2020-11-19 21:24 | OP ---
PATIENT NAME: MEKA CHAVEZ MEDICAL RECORD: [id number] :49 LOCATION:D. D.1205 ADMISSION DATE:11/19/20 SURGEON: REJI ARELLANO DO DATE OF OPERATION: 11/19/2020 PROCEDURE PERFORMED: Right total knee arthroplasty. PREOPERATIVE DIAGNOSIS: Right knee osteoarthritis. POSTOPERATIVE DIAGNOSIS: Right knee osteoarthritis. INDICATIONS: Ms. Chavez is a 75-year-old female who has had right knee pain for quite some time. She was tired of dealing with the pain and wanted something done surgically. She was tired of injections and nonoperative treatment as this knee affected her activities of daily living. She was aware of the risks of this including infection, bleeding, damage to nerves and vessels, need for further surgery, continued pain, arthrofibrosis of the knee, need for manipulation, failure of implants, fracture, blood clots and even and she signed the consent. SURGEON: Rjei Arellano DO DESCRIPTION OF PROCEDURE: The patient was taken to the operative suite, laid in supine position, given general anesthetic and after given a block by anesthesia and LMA was placed. The right lower extremity was then prepped and draped in sterile fashion. A timeout was performed. Everyone was in agreeance with the correct site, side, patient and procedure. She received 80 mg of gentamicin, 2 grams of Ancef and a gram of TXA. The right knee was marked out and the incision covered in [place]. I then made an incision after the timeout was performed with a #10 blade scalpel, down to the capsule, cleaned it off and a fresh 10-blade with a medial parapatellar approach to the capsule coagulating any bleeding as we went through the capsule. I then everted the patella and sawed it down in order for the implant. I got down to 13 mm and then drilled for a 29 patella. I then flexed the knee up, removed the ACL, went to the femoral canal with a drill and then after irrigating out the femoral canal put in the intramedullary guide, pinned it and cut the distal femur off the intramedullary guide after removing the guide. I then removed that bone and then exposed the proximal tibia and through an extramedullary guide cut it. I then brought the knee to extension, removed the bone that had not been removed and menisci. I then need to recut the tibia, cut 4-mm off the tibia, removed that bone and sized the femur to be an 8. I used a 4-in-1 cutting block on the femur and alex wing to make sure there was no notching and there was not. I then cut the femur through the 4-in-1 cutting block, removed the bone. I then exposed the tibia, sized it to be an E, pinned it into place and then put an 8 trial femur on with a 10 poly, fit very well, had good stability medial varus and valgus stress in extension, mid flexion, and flexion. I then drilled lug holes of the femur, removed the trial poly and femur and then drilled, reamed and punched for the tibia. I then irrigated that out, put extra holes in the tibia and then mixed the cement, put the cement in the tibia and on the implant, then impacted in place, removed excess cement. I then impacted the femur on, put a 10-poly in between, brought the knee in extension and put on the patella, putting cement on the patella after irrigating it out and on the implant and squeezed it into place, removed excess cement from it. Held the squeezer into place for 10 minutes. I then irrigated with 10% povidone-iodine and 500 mL of normal saline solution and let it sit for 3 minutes while that was sitting. I OPERATIVE REPORT [id number] MEKA CHAVEZ injected with the joint cocktail around the periosteum and into the quad muscles. I then irrigated out with over a liter of normal saline. By then the cement had dried, I then trialed with a 12 poly, 12 poly fit very well, had good stability in varus and valgus stress in flexion, mid flexion and extension. I then removed the trial and put in the actual MC bearing 12 E poly and locked it into place. I then ranged the knee and it had very good stability in flexion, extension and mid flexion with varus and valgus stress. I then put in Rosibel and vancomycin and tobramycin powder, closed the capsule with #1 Vicryl in [id number] fashion. Salud Flynn, anesthesiologist assistant certified then closed the capsule over that with Stratafix #1, and then he and Steve Shukla, certified surgical first sampler closed the skin with 2-0 Vicryl in inverted interrupted fashion, placed on the ZipLine, Adaptic, 4 x 4s, ABD, Webril, Ryan wrap and KATERINA hose stocking. She was then awakened and taken to recovery in stable condition. BLOOD LOSS: Approximately 200 mL. COMPLICATIONS: None. TRANSINT:[id number] Voice Confirmation ID: [id number] DOCUMENT ID: [id number] REJI ARELLANO DO at 2124 CC: [id number] DICTATION DATE: 11/19/20 1025 NO BAKE MOLDER: 11/19/20 1703 ADM IN [facility] [address] [place] [address]
--- NOTE | 2020-11-19 21:30 | NUR ---
PT IS NOW OFF THE CPM. SHE WANTS TO USE THE BEDPAN. I PUT TWO OF THE BIG CHUX PADS UNDER HER ALONG WITH THE BEDPAN TO HELP PREVENT URINE FROM GETTING ON THE BED WHEN THE BEDPAN IS TAKEN OUT. PT ENDED UP GETTING URIN ON THE CHUX. THESE WERE REMOVED. THEN PT SAID HER BED WAS WET FROM BEFORE THE CHUX WERE PLACED. SHE HAD A BED CHANGE AND WAS CLEANED OFF WITH BATH WIPES. SHE STATES SHE FEELS MUCH BETTER. SHE REQUESTED A PAIN PILL AND IT WAS GIVEN.
[2020-11-20] VITALS: BP 98/39
[2020-11-20 00:05] VITALS: BP 98/39
--- NOTE | 2020-11-20 01:12 | NUR ---
PT STATES HER PAIN IS MUCH BETTER NOW.
--- NOTE | 2020-11-20 03:20 | NUR ---
PT REQUESTED ANOTHER PAIN PILL. THIS WAS GIVEN.
[2020-11-20 04:00] VITALS: BP 93/39
--- NOTE | 2020-11-20 04:30 | NUR ---
PT IS AWAKE READING HER BIBLE IN HER ROOM. SHE STATES HER PAIN IS MUCH BETTER.
--- NOTE | 2020-11-20 06:29 | NUR ---
PT HAS BEEN PUT ON HER CPM. SHE HAS NO C/O AT THIS TIME
[2020-11-20 07:52] VITALS: BP 102/57
--- NOTE | 2020-11-20 08:04 | NUR ---
PATIENT ADMINISTERED PRN PAIN MEDICATION, CURRENTLY ON CPM STILL. CONTINUE WITH PLAN OF CARE
[2020-11-20 08:28] LABS: BASOPHILS 0 % (0-2); EOSINOPHILS 0.8 % (0-7); HEMATOCRIT 33.3 % (36.0-48.0); HEMOGLOBIN 10.7 g/dL (12-16); IMMATURE GRANULOCYTES 0.1 % (0-5); LYMPHOCYTE ABS# 1.85 10x3/uL (1.18-3.74); LYMPHOCYTES 25.5 % (15-50); MCH 27.4 pg (26.0-34.0); MCHC 32.1 g/dL (31.0-37.0); MCV 85.4 fL (80.0-100.0); MEAN PLATELET VOLUME 9.5 fL (7.4-10.4); MONOCYTES 9.8 % (2-11); NEUTROPHIL ABS# 4.62 10x3/uL (1.56-6.13); NEUTROPHILS 63.8 % (40-80); PLATELET COUNT 215 10x3/uL (130-400); RDW 14.1 % (11.5-14.5); WBC 7.3 10x3/uL (4.8-10.8)
[2020-11-20 08:39] LABS: ALBUMIN 2.9 g/dL (3.4-5.0); ALKALINE PHOSPHATASE 47 U/L (30-120); ALT (SGPT) 27 U/L (10-68); BILIRUBIN - TOTAL 0.47 mg/dL (0.2-1.3); CALC OSMOLALITY 271 mosm/kg (275-300); CALCIUM 8.2 mg/dL (8.5-10.1); CARBON DIOXIDE 27.2 mmol/L (21.0-32.0); CHLORIDE - SERUM 102 mmol/L (98-107); CREATININE - SERUM 0.7 mg/dL (0.6-1.3); GLUCOSE 89 mg/dL (74-106); POTASSIUM - SERUM 3.7 mmol/L (3.5-5.1); PROTEIN - SERUM 5.6 g/dL (6.4-8.2); SODIUM 136 mmol/L (136-145); UREA NITROGEN 14 mg/dL (7-18); eGFR NON AFRICAN AMERICAN 87 mL/min (90-120)
--- NOTE | 2020-11-20 09:30 | NUR ---
ASSISTED PATIENT TO RESTROOM WITH WALKER THEN TO CHAIR AT BEDSIDE, COMPLETE LINEN CHANGED. PATIENT AMVULATED WELL, DOES C/O CPM MACHINE BEING TOO LONG FOR BED AND NOT FITTING CORRECTLY. WILL DISCUSS WITH PHYSICAL THERAPY WHEN THEY GET TO FLOOR
--- NOTE | 2020-11-20 16:35 | NUR ---
I have reviewed this patient and I concur with the Shift Assessment completed by the Licensed Practical Nurse today this shift.
--- NOTE | 2020-11-20 18:36 | NUR ---
PATIENT C /O PAIN AND NAUSEA, ADMINISTERED PRN MEDICATIONS, WHILE PLACING PATIENT ON CPM SHE STATED THAT HER HIPS ARE HURTING HER WELL. PLACED ICE PACKS ON PATIENT AT THIS TIME. NO OTHER NEEDS VOICED. CONTINUE WITH PLAN OF CARE
[2020-11-20 19:41] VITALS: BP 127/70
--- NOTE | 2020-11-20 20:00 | NUR ---
ALERT RESTING IN BED CPM IN USE, DENIES PAIN OR NAUSEA AT THIS TIME, CALL LIGHT IN REACH, SEE SHIFT ASSESSMENT
[2020-11-21 04:00] VITALS: BP 133/73
[2020-11-21] MEDS ORDERED: HYDROCODON-ACE1 EA10 PO (07:07)
[2020-11-21] MEDS ORDERED: ELIQUIS2.5 MG PO (07:08)
[2020-11-21 07:25] VITALS: BP 129/55
--- NOTE | 2020-11-21 07:30 | NUR ---
PT RESTING QUIETLY IN BED. RESP EVEN AND UNLABORED. VOICES PAIN 3/[address] AT [address] TIME[address]PM IN [address]ACE TO RIGHT LOWER EXTREMITY. EXTREMITY WARM TO TOUCH PULSES PALPABLE. SALINE LOC TO LEFT FOREARM, SITE WITHOUT REDNESS OR EDEMA. DRESSING TO RIGHT LOWER EXTREMITY, C/D/I. DENIES FURTHER NEEDS AT THIS TIME. CL WITHIN REACH. ENCOURAGED TO CALL WITH NEEDS. CONTINUE POC
[2020-11-21 07:48] LABS: ALKALINE PHOSPHATASE 52 U/L (30-120); ALT (SGPT) 28 U/L (10-68); BILIRUBIN - TOTAL 0.57 mg/dL (0.2-1.3); CALC OSMOLALITY 276 mosm/kg (275-300); CARBON DIOXIDE 27.2 mmol/L (21.0-32.0); CHLORIDE - SERUM 104 mmol/L (98-107); CREATININE - SERUM 0.6 mg/dL (0.6-1.3); GLUCOSE 91 mg/dL (74-106); POTASSIUM - SERUM 3.5 mmol/L (3.5-5.1); PROTEIN - SERUM 6.3 g/dL (6.4-8.2); SODIUM 140 mmol/L (136-145); UREA NITROGEN 7 mg/dL (7-18); eGFR NON AFRICAN AMERICAN > 90 mL/min (90-120)
[2020-11-21 08:02] LABS: BASOPHILS 0.1 % (0-2); EOSINOPHILS 1.3 % (0-7); HEMATOCRIT 35.7 % (36.0-48.0); HEMOGLOBIN 11.7 g/dL (12-16); IMMATURE GRANULOCYTES 0.3 % (0-5); LYMPHOCYTE ABS# 1.38 10x3/uL (1.18-3.74); LYMPHOCYTES 20.1 % (15-50); MCH 27.6 pg (26.0-34.0); MCHC 32.8 g/dL (31.0-37.0); MCV 84.2 fL (80.0-100.0); MEAN PLATELET VOLUME 9.6 fL (7.4-10.4); MONOCYTES 9.8 % (2-11); NEUTROPHIL ABS# 4.69 10x3/uL (1.56-6.13); NEUTROPHILS 68.4 % (40-80); PLATELET COUNT 218 10x3/uL (130-400); RBC 4.24 10x6/uL (4.00-5.40); RDW 13.7 % (11.5-14.5); WBC 6.9 10x3/uL (4.8-10.8)
--- NOTE | 2020-11-21 11:00 | NUR ---
DRESSING CHANGED PER MD ORDERS TO RIGHT LOWER EXTREMITY. MINIMAL OLD BLOOD DRAINAGE NOTED TO SURGICAL DRESSING. ZIP LINE INTACT TO RIGHT KNEE. EDGES WELL APPROXIMATED. INSTRUCTED PT ON DRESSING CHANGE EVERY 4 DAYS, PROVIDING WITH MEPILEX AG DRESSING. WRAPPED WITH JEANETTE WRAP AND KATERINA HOSE. PT VOICES UNDERSTANDING OF DRESSING CHANGE AND USE OF JEANETTE WRAP AND KATERINA HOSE. SALINE LOC DISCONTINUED FROM LEFT FOREARM, CATH INTACT. DISCUSSED PRESCRIPTIONS AND IMPORTANCE OF ADMINISTRATION OF ELIQUIS. PT VOICES UNDERSTANDING TO ALL INSTRUCTIONS, DENIES ANY QUESTIONS. PT TAKEN OUT VIA W/C TO PRIVATE VEHICLE WITH ALL PERSONAL BELONGINGS.
--- NOTE | 2020-11-21 17:12 | MORECARE ---
CASE MANAGEMENT DISCHARGE SUMMARY PATIENT: MEKA CHAVEZ UNIT: [id number] ADM DATE: 11/19/20 AGE: 75 : 47 SEX: F ROOM/BED: [facility] AUTHOR: TALHA,DOC PHYSICIAN: REFERRING PHYSICIAN: EMILY ARELLANO DO DATE OF SERVICE: 11/21/20 Case Management Discharge Planning Summary COMMENTS ENTERED DATE: 11/21/20 17:00 CT COMMENT TYPE: Discharge Planning REVIEWER: Adore Ellington LATE ENTRY 11/21/20 @ 1430 PATIENT WAS DISCHARGED WITHOUT CM MADE AWARE, ATTEMPTED TO CALL THE PATIENT WITHOUT ANY LUCK, WILL TRY AGAIN ON TUESDAY. THE PATIENTS NEED TO BE SET UP WITH PHYSICAL THERAPY DCP REVIEW SUMMARY ANTICIPATED D/C DATE: EXPECTED LOS : CASE STATUS: DCP Initiated INITIAL REVIEW: 11/19/2020 INITIAL REVIEWER: Adore Ellington FINAL DISCHARGE DISPOSITION: : FINAL REVIEWER: FINAL REVIEW DATE: DCP [employer] Questions & Answers QUESTION: ANSWER : PATIENT: MEKA CHAVEZ ENCOUNTER: [id number] MEDICAL RECORD#: [id number] ADMISSION DATE: 11/19/2020 DISCHARGE DATE: 11/21/2020 ATTENDING MD: EMILY GRAY : AGE: 75 MARITAL STATUS: M DC PLAN ID: [id number] FACILITY: [facility] PRINTED ON: 11/21/20 17:12 CT All edits/amendments must be made on the electronic document DICTATION DATE: 11/21/201711 VICE PRESIDENT LENDING: ROBER 11/21/201711 RPT#: [id number] DC DATE:11/21/20 STATUS: DIS IN [facility] [address] [place] [address] END OF REPORT
--- NOTE | 2020-11-24 11:21 | NUR ---
I CALLED AND SPOKE WITH THE PATIENT THIS MORNING TO SET UP HER PT APPOINTMENT AND SHE HAS ALREADY SET IT UP. SHE WILL BE COMING TO [facility] TOMORROW AT10:30 FOR HER FIRST APPOINTMENT. SHE HAS BEEN THERE BEFORE.
== END 2020-11-21 11:35 | disposition home or self-care (01) | DRG 470 ==
LOC: D.SDCHOLD 11-19 06:30 → D.M3 11-19 10:59
PROVIDERS: Family Medicine; ADMIT Orthopaedic Surgery; ATTEND Orthopaedic Surgery
PROC: 0SRC0J9 Replacement of Right Knee Joint with Synthetic Substitute, Cemented, Open Approach (ICD-10-PCS; principal; 2020-11-19 08:45)
DX: M17.11 Unilateral primary osteoarthritis, right knee (principal); E03.9 Hypothyroidism, unspecified; G43.909 Migraine, unspecified, not intractable, without status migrainosus; K21.9 Gastro-esophageal reflux disease without esophagitis; G89.29 Other chronic pain; M54.9 Dorsalgia, unspecified; M81.0 Age-related osteoporosis without current pathological fracture; F32.9 Major depressive disorder, single episode, unspecified; F98.8 Other specified behavioral and emotional disorders with onset usually occurring in childhood and adolescence; D64.9 Anemia, unspecified; Z85.828 Personal history of other malignant neoplasm of skin